=== PATIENT | male | born 1975 | race Caucasian/White ===

== ENCOUNTER 2017-06-20 09:05 | Emergency (ER) | payer SELFPAY ==
[~2017-06-20 09:05] MED LIST: Etomidate 2 MG/ML 20 ML SDV IVPUSH ONE; Rocuronium 50 MG/5 ML Vial ONE; Succinylcholine 200 MG/10 ML MDV IV SCH; Succinylcholine/Normal Saline 200 MG/10 ML Syringe ONE
[2017-06-20] MEDS ORDERED: cefTRIAXone 2 GM in Premix Bag 1 BAG IV ONE (09:07)
[2017-06-20] MEDS ORDERED: Sodium Chloride 0.9% 10 ML Syringe FLUSH PRN (09:10)
[2017-06-20] MEDS ORDERED: Sodium Chloride 0.9% 2.5 ML Syringe FLUSH PRN (09:10)
[2017-06-20] MEDS ORDERED: Sodium Chloride 0.9% 1,000 ML IV SCH (09:15)
[2017-06-20] MEDS ORDERED: Rocuronium 10 MG/ML 10 ML Syringe IVPUSH ONE (09:20)
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
--- NOTE | 2017-06-20 09:30 | CR ---
EXAMINATION: Portable chest radiograph. HISTORY: Shortness of breath. FINDINGS: The trachea is midline. Endotracheal tube is noted and could position 3 cm above the kelle. The hear t is normal in size. Mild nodular fullness and right infrahilar region. Mild interstitial prominence bilaterally. No pleural effusion or pneumothorax. Endogastric tube projects into the stomach. Osseous structures appear unremarkable. IMPRESSION: 1. Endotracheal tube and endogastric tube in good position. 2. Mild nodular fullness right hilum. Follow-up on subsequent chest radiograph imaging may be benefi cial.
[2017-06-20] MEDS ORDERED: Acyclovir 500 MG/10 ML SDV IV SCH (09:45)
[2017-06-20 11:00] LABS: CHLORIDE,CL 104 mmol/L (98-107); SODIUM,NA 140 mmol/L (136-148)
[2017-06-20] MEDS ORDERED: Rocuronium 50 MG/5 ML Vial IVPUSH ONE (16:45)
== END 2017-06-20 10:00 ==
LOC: MW.ED 09:05
DX: R41.82 Altered mental status, unspecified (principal)
CPT/HCPCS: 31500; 36415; 36600; 43753; 51702; 71045; 80053; 80305; 81001; 82140; 82803; 82962; 83605; 84443; 84484; 85025; 85610; 87040; 93005; 96361; 96374; 96375; 99291; G0480; J0330; J0696; J7040; 99283

== ENCOUNTER 2019-07-27 04:20 | Emergency (ER) | payer SELFPAY ==
[2019-07-27] MEDS ORDERED: Sodium Chloride 0.9% 2.5 ML Syringe FLUSH PRN (04:25)
[2019-07-27] MEDS ORDERED: Sodium Chloride 0.9% 10 ML Syringe FLUSH PRN (04:25)
[2019-07-27] MEDS ORDERED: Sodium Chloride 0.9% 10 ML SDV IV PRN (04:25)
[2019-07-27] MEDS ORDERED: Diphtheria,Pertussis(Acell),Tetanus Vaccine 0.5 ML Syringe IM ONE (04:30)
[2019-07-27] MEDS ORDERED: Water For Injection, Sterile 20 ML ONE (04:44)
[2019-07-27 04:50] LABS: BLOOD UREA NITROGEN,BUN 13 mg/dL (7.0-18.0); CARBON DIOXIDE,CO2 20.1 mmol/L (21.0-32.0); CHLORIDE,CL 102 mmol/L (98-107); GLUCOSE RANDOM 175 mg/dL (74-106); POTASSIUM,K 2.9 mmol/L (3.5-5.1); SODIUM,NA 138 mmol/L (136-148)
[2019-07-27] MEDS ORDERED: Magnesium Sulfate/Water 2 GM in Premix Bag 1 BAG IV ONE (04:59)
[2019-07-27] MEDS ORDERED: Lactated Ringers 1,000 ML IV ONE ×2 (05:02→05:43)
[2019-07-27] MEDS ORDERED: Potassium Chloride Riders 20 MEQ in Premix Bag 1 BAG IV ONE (05:03)
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
--- NOTE | 2019-07-27 05:55 | CT ---
INDICATION: Trauma COMPARISON: None TECHNIQUE: CT examination of the head was performed as axial sections without intravenous contrast. Images were obtained from the vertex of the skull through the skull base. Please note that all CT scans at this facility use dose modulation, iterative reconstruction, and/or weight-based dosing when appropriate to reduce radiation dose to as low as reasonably achievable. FINDINGS: The brain shows no sign of mass lesion, mass effect, hemorrhage, or edema. The ventricles and sulci are normal in appearance for the patient`s age. The visualized portions of the orbits are normal in appearance. The osseous structures are normal in their appearance with no sign of abnormality in the skull base or calvarium. A small amount of fluid is noted in the left mastoids. There is no direct visible fracture so this is statistically most likely to be inflammatory IMPRESSION: No acute intracranial posttraumatic findings. There is fluid in the mastoids. There is no directly visible fraction this area so the findings are likely inflammatory. Please note that all CT scans at this facility use dose modulation, iterative reconstruction, and/or weight-based dosing when appropriate to reduce radiation dose to as low as reasonably achievable. Dictated by Jose Resendiz MD @ Jul 27 2019 5:52AM Signed by Dr. Jose Resendiz @ Jul 27 2019 5:55AM
--- NOTE | 2019-07-27 05:59 | CT ---
INDICATION: Trauma COMPARISON: None TECHNIQUE: CT examination of the cervical spine is performed without contrast using spiral technique. Thin axial, sagittal and coronal reconstructions were made. Please note that all CT scans at this facility use dose modulation, iterative reconstruction, and/or weight-based dosing when appropriate to reduce radiation dose to as low as reasonably achievable. FINDINGS: : The alignment of the vertebral elements is normal. There is no lytic or blastic lesion, fracture or dislocation identified. There are minor degenerative changes. There is fluid in the mastoids. I do not directly CA fracture and therefore the findings are statistically most likely inflammatory. IMPRESSION: No fracture the cervical spine. Fluid in the mastoids likely inflammatory Please note that all CT scans at this facility use dose modulation, iterative reconstruction, and/or weight-based dosing when appropriate to reduce radiation dose to as low as reasonably achievable. Dictated by Jose Resendiz MD @ Jul 27 2019 5:55AM Signed by Dr. Jose Resendiz @ Jul 27 2019 5:58AM
--- NOTE | 2019-07-27 06:22 | CR ---
Indication: Trauma Technique: A single view of the chest was obtained as an AP supine study. Comparison: None Findings: Normal cardiomediastinal silhouette. Clear lungs. No pleural effusion or pneumothorax. No visible acute osseous pathology. Impression: Normal single-view chest radiograph. Dictated by Jose Resendiz MD @ Jul 27 2019 6:20AM Signed by Dr. Jose Resendiz @ Jul 27 2019 6:20AM
--- NOTE | 2019-07-27 06:22 | CR ---
Indication: Trauma Technique: Single-view AP study Comparison: None Findings: Bone mineral density is normal. Soft tissues are radiographically normal. There is no lytic or blastic lesion, fracture or dislocation identified. Impression: Normal single-view pelvis radiograph Dictated by Jose Resendiz MD @ Jul 27 2019 6:20AM Signed by Dr. Jose Resendiz @ Jul 27 2019 6:21AM
[2019-07-27] MEDS ORDERED: Potassium Chloride 10% 20 MEQ/15 ML Soln 30 ML UD Cup PO ONE (06:29)
== END 2019-07-27 06:46 ==
LOC: MW.ED 04:20
DX: S01.21XA Laceration without foreign body of nose, initial encounter (principal); S40.211A Abrasion of right shoulder, initial encounter; E87.6 Hypokalemia; N28.9 Disorder of kidney and ureter, unspecified; G93.40 Encephalopathy, unspecified; R00.0 Tachycardia, unspecified; V49.9XXA Car occupant (driver) (passenger) injured in unspecified traffic accident, initial encounter
CPT/HCPCS: 36415; 70450; 70551; 71045; 72125; 72170; 80053; 80305; 80307; 81001; 83605; 84484; 85025; 90471; 90715; 93005; 96365; 96367; 99285; J3475; J3480; J7120; 99283